=== PATIENT | male | born 1980 | race Caucasian/White ===

== ENCOUNTER 2021-04-29 20:21 | Emergency (ER) | payer MEDICAID ==
[~2021-04-29] VITALS: Ht 167.6 cm; Wt 70.3 kg
[2021-04-29] MEDS ORDERED: diphenhydrAMINE HCL 50 MG/ML VIAL ONE (20:28)
[2021-04-29] MEDS ORDERED: OLANZAPINE 10 MG VIAL IM ONE (20:28)
[2021-04-29] MEDS ORDERED: LORAZEPAM INJ 2 MG/ML VIAL ONE (20:29)
[2021-04-29] MEDS ORDERED: LORAZEPAM INJ 2 MG/ML VIAL IM ONE (20:30)
[2021-04-29] MEDS ORDERED: diphenhydrAMINE HCL 50 MG/ML VIAL IM ONE (20:30)
[2021-04-29] MEDS ORDERED: OLANZAPINE 5 MG TABLET PO ONE (20:30)
[2021-04-29 20:46] LABS: BASOPHILS % (AUTO) 0.4 % (0.0-2.0); EOSINOPHILS % (AUTO) 0.2 % (0.0-6.0); HEMATOCRIT 47 % (39-51); HEMOGLOBIN 15.6 g/dL (13.5-17.5); LYMPHOCYTES # (AUTO) 1.4 /CMM (0.8-4.8); LYMPHOCYTES % (AUTO) 18.5 % (20.0-44.0); MEAN CORPUSCULAR HGB CONC 33 g/dl (31.0-36.0); MEAN CORPUSCULAR VOLUME 85 fL (80-96); MONOCYTES # (AUTO) 0.4 /CMM (0.1-1.30); MONOCYTES % (AUTO) 5.5 % (2.0-12.0); NEUTROPHILS # (AUTO) 5.5 /CMM (1.8-8.9); NEUTROPHILS % (AUTO) 75.4 % (43.0-81.0); PLATELET COUNT (AUTO) 263 /CMM (150-450); RED BLOOD CELL COUNT(AUTO) 5.51 MIL/uL (4.5-6.0); WHITE BLOOD COUNT (AUTO) 7.3 K/uL (4.3-11.0)
[2021-04-29 20:57] LABS: CALCIUM, SERUM 9.5 mg/dL (8.5-10.1); CARBON DIOXIDE 29 mmol/L (21-32); CHLORIDE 101 mmol/L (98-107); CREATININE 1.4 mg/dL (0.6-1.3); GLUCOSE 109 mg/dL (74-106); POTASSIUM 3.2 mmol/L (3.5-5.1); SODIUM SERUM 144 mmol/L (136-145); UREA NITROGEN, BLOOD 11 mg/dL (7-18)
[2021-04-29 21:03] LABS: ALANINE AMINOTRANSFERASE 40 U/L (12-78); ALBUMIN 4.8 g/dL (3.4-5.0); ALKALINE PHOSPHATASE 61 U/L (46-116); ASPARTATE AMINOTRANSFERASE 26 U/L (15-37); BILIRUBIN,DIRECT 0.3 mg/dL (0.0-0.2); BILIRUBIN,TOTAL 0.8 mg/dL (0.2-1.0); TOTAL PROTEIN, SERUM 8.5 g/dL (6.4-8.2)
[2021-04-29 21:06] LABS: ACETAMINOPHEN < 2 ug/ml (10-30); ALCOHOL, BLOOD < 3 mg/dL (0-0)
--- NOTE | 2021-04-29 21:10 | NUR ---
PATIENT CAME TO ER BED [address] AND [employer] C/O SUICIDAL IDEATIONPLANS TO JUMP OFF BRIDGE. PATIENT IS ALERT AND ORIENTED x4. DENIES SHORTNESS OF BREATH. PATIENT IS CONNECTED TO THE MONITOR. PATIENT IS CHANGED INTO A GOWN AND PERSONAL BELONGINGS ARE PLACED IN TO A LOCKED LOCKER. SITTER IS AT BEDSIDE. WILL CONTINUE TO MONITOR PATIENT CLOSELY.
--- NOTE | 2021-04-29 21:14 | NUR ---
URINE COLLECTED AND SENT TO THE LAB.
[2021-04-29] MEDS ORDERED: LIDOCAINE 2% JEL UROJET 10 ML MM ONE ×2 (21:30→22:00)
[2021-04-29] MEDS ORDERED: POTASSIUM CHLORIDE 20 MEQ TAB.PRT.SR PO ONE (21:30)
--- NOTE | 2021-04-29 21:36 | NUR ---
URINE COLLECTED AND SENT TO LAB.
--- NOTE | 2021-04-29 21:46 | NUR ---
RAPID COVID COLLECTED AND SENT TO LAB.
--- NOTE | 2021-04-29 22:02 | NUR ---
PATIENT IS REMOVED FROM MEDICAL RESTRAINTS. PATIENT IS NOT IN ANY DISTRESS. PATIENT IS CALM, COOPERATIVE. PATIENT IS RESTING. CONNECTED TO THE MONITOR. SITTER IS AT BEDSIDE.
[2021-04-29 22:54] LABS: BILIRUBIN,URINE NEGATIVE (NEGATIVE); COLOR,URINE YELLOW (YELLOW); LEUKOCYTE ESTERASE ,URINE NEGATIVE (NEGATIVE); NITRITE, URINE NEGATIVE (NEGATIVE); PH,URINE 7.5 (5.0-8.0); PROTEIN,URINE NEGATIVE (NEGATIVE); UGLUCOSE NEGATIVE (NEGATIVE)
[2021-04-29 23:08] LABS: BACTERIA,URINE None seen /HPF (None Seen); CALCIUM OXALATE CRYSTALS,UR Many /HPF (None Seen); MUCUS,URINE Few /LPF (None Seen); RBC,URINE 0-2 /HPF (0-2); SQUAMOUS EPITHELIAL CELL,UR Few /HPF (None Seen); WBC,URINE 0-2 /HPF (0-3)
--- NOTE | 2021-04-30 01:17 | NUR ---
PATIENT IS SLEEPING. EASILY AROUSABLE THROUGH VERBAL STIMULI .CONNECTED TO THE MONITOR. SITTER AT BEDSIDE. WILL CONTINUE TO MONITOR CLOSELY.
--- NOTE | 2021-04-30 05:28 | NUR ---
PATIENT IS ASLEEP. AROUSABLE TO NOISE. NOT IN ANY DISTRESS. CONNECTED TO THE MONITOR. SITTER AT BEDSIDE. VSS.
--- NOTE | 2021-04-30 07:24 | NUR ---
Patient is resting comfortably in bed with eyes closed. Easily aroused. VSS
[2021-04-30] MEDS ORDERED: POTASSIUM CHLORIDE 20 MEQ TAB.PRT.SR PO ONE (07:53)
--- NOTE | 2021-04-30 08:20 | NUR ---
[facility] CALLED. LEFT CONTACT # [phone]
--- NOTE | 2021-04-30 10:16 | NUR ---
PT SITTING UP EATING BREAKFAST. PT CALM & COOPERATIVE. SITTER AT BS & WILL CONT TO MONITOR.
--- NOTE | 2021-04-30 10:56 | NUR ---
CALLED [facility] FOR FOLLOWUP ON ACCEPTANCE. AT THE MOMENT NO BEDS AVAILABLE BUT PENDING DISCHARGE. WILL CALL US BACK WITH ACCEPTANCE INFO.
--- NOTE | 2021-04-30 13:00 | NUR ---
Patient is resting comfortably in bed with eyes closed. Easily aroused. VSS
--- NOTE | 2021-04-30 18:02 | NUR ---
ACCEPTED AT [facility]. GOING TO [facility] ACCEPTING: DR WARE # REPORT [phone] Addendum: 04/30/21 at 1813 by LEILA CONTACT # [phone]
--- NOTE | 2021-04-30 18:04 | NUR ---
CALLED [facility] FOR TRANSPORT TO [facility]. ETA 45-60 MINUTES.
[2021-04-30 18:06] VITALS: BP 119/78
--- NOTE | 2021-04-30 18:11 | NUR ---
REPORT GIVEN TO SHARA AT [facility]. GOING TO [address], UNDER DR WARE.
--- NOTE | 2021-04-30 19:22 | NUR ---
PT TRANSPORTED TO [facility] IN STABLE CONDITION.
== END 2021-04-30 19:25 ==
LOC: ER 20:26
DX: R45.851 Suicidal ideations (principal); F31.9 Bipolar disorder, unspecified; F15.10 Other stimulant abuse, uncomplicated; I10 Essential (primary) hypertension; Z20.822 Contact with and (suspected) exposure to COVID-19; B20 Human immunodeficiency virus [HIV] disease; R00.0 Tachycardia, unspecified
CPT/HCPCS: 36415; 80048; 80076; 80143; 80307; 80320; 81001; 85025; 87426; 93005; 96372 ×2; 99285; C9803 ×2; J1200; J2060; J3490 ×2; U0003; G0480